=== PATIENT | male | born 1965 | race Caucasian/White ===

== ENCOUNTER → 2017-02-28 | Outpatient (CLI) | payer MEDICARE ==
--- NOTE | 2017-02-28 12:08 | REP ---
MRI OF THE RIGHT HIP: TECHNIQUE: Coronal T1, STIR through the pelvis, T2 fat sat, right hip all three planes, axial oblique proton density fat sat right hip. There is no bone marrow edema or occult fracture. There is no evidence of avascular necrosis. Two small bone islands are seen in the left femoral head. 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 Ill-defined high signal in the superior labrum and anterior labrum on the right is compatible with diffuse fraying. NO paralabral cyst is seen. There is no joint effusion. Other surrounding soft tissue structures demonstrate no abnormal signal. There is no evidence of tendinobursitis. The visualized intrapelvic structures appear unremarkable. 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 There appears to be diffuse fraying of the right superior labrum and anterior labrum. The labrum would be better evaluated with an MR arthrogram if clinically indicated. Signed by Hang Chaney MD 02/28/2017 07:59 P
== END ==
LOC: M PLARAD 10:05
PROVIDERS: ATTEND Orthopaedic Surgery
DX: M16.11 Unilateral primary osteoarthritis, right hip (principal)

== ENCOUNTER → 2018-05-08 | Outpatient (CLI) | payer MEDICARE, MEDICAID | LOC: M PLARAD 14:12 | DX: M51.36 Other intervertebral disc degeneration, lumbar region (principal) | CPT/HCPCS: 72148 ==

== ENCOUNTER → 2018-08-11 | Outpatient (REF) | payer MEDICARE, MEDICAID ==
[2018-08-11 14:57] LABS: PLATELET COUNT, AUTOMATED 265 10^3/uL (150-450)
[2018-08-11 15:09] LABS: INR 1.07; PARTIAL THROMBOPLASTIN TIME 29.5 SECONDS (25.4-37.6)
[2018-08-11 15:12] LABS: COLLAGEN EPINEPHRINE 155 SECONDS (74-162)
== END ==
LOC: M LABDRAW1 14:23
DX: D69.1 Qualitative platelet defects (principal); Z79.01 Long term (current) use of anticoagulants
CPT/HCPCS: 85049

== ENCOUNTER → 2018-10-22 | Outpatient (REF) ==
[~2018-10-22] MED LIST: ATOR40TA75 PO; COMB0.2S OU; GRIS1TAB PO; OMEP20CA3 PO; SIMV40TA2 PO; VITA50005 PO; XALA0.007 OU; ZYRT10CA5 PO
[2018-10-22 14:49] LABS: COLLAGEN EPINEPHRINE 170 SECONDS (74-162)
[2018-10-22 15:03] LABS: COLLAGEN ADP 142 SECONDS (56-103)
== END ==
LOC: M LAB REF 13:56
PROVIDERS: ATTEND Physical Medicine & Rehabilitation
DX: Z02.9 Encounter for administrative examinations, unspecified (principal)

== ENCOUNTER → 2018-11-03 | Outpatient (REF) ==
[2018-11-03 14:21] LABS: COLLAGEN EPINEPHRINE 169 SECONDS (74-162)
[2018-11-03 14:30] LABS: COLLAGEN ADP 151 SECONDS (56-103)
== END ==
LOC: M LAB REF 13:46
PROVIDERS: ATTEND Physical Medicine & Rehabilitation
DX: Z00.00 Encounter for general adult medical examination without abnormal findings (principal)

== ENCOUNTER 2021-01-10 16:14 | Emergency (ER) | payer MEDICARE, OTHER ==
[~2021-01-10] VITALS: Ht 167.6 cm; Wt 85.0 kg
[~2021-01-10 16:14] MED LIST changes: +ACET-683 PO; +ALL10TAB3 PO; +ATOR80TA59 PO; +CIPR500T19 PO; +CYCL-707 PO; +FENO48TA7 PO; +MULTCAP PO; +OMEP1CAP73 PO; -OMEP20CA3 PO; -SIMV40TA2 PO; +SIMV40TA20 PO; +STIM1.5S; +TRIA0.5O EX; +TUMS500C PO
[2021-01-10] MEDS ORDERED: LIDOCAINE 1% MDV 20ML VIAL SC ONE (18:45)
[2021-01-10] MEDS ORDERED: BACI500O21 TOP (19:10)
[2021-01-10 19:16] VITALS: BP 126/74
== END 2021-01-10 19:22 | disposition home or self-care (01) ==
LOC: M ED 16:14
DX: S61.012A Laceration without foreign body of left thumb without damage to nail, initial encounter (principal); W22.8XXA Striking against or struck by other objects, initial encounter; Y92.238 Other place in hospital as the place of occurrence of the external cause; I10 Essential (primary) hypertension; Z79.899 Other long term (current) drug therapy; Z88.0 Allergy status to penicillin

== ENCOUNTER → 2022-10-03 | Outpatient (CLI) | payer MEDICARE, MEDICAID ==
[~2022-10-03] MED LIST changes: +BACI500O21 TOP; +DESM0.1T2; +ERGO500029 PO; -FENO48TA7 PO; +FENO48TA8 PO; +MULT-90 PO
== END ==
LOC: M PAIN 13:00
PROVIDERS: ATTEND Nurse Practitioner Family
DX: M79.10 Myalgia, unspecified site (principal); G89.29 Other chronic pain; E11.9 Type 2 diabetes mellitus without complications; I10 Essential (primary) hypertension; G80.9 Cerebral palsy, unspecified; Z88.0 Allergy status to penicillin; Z88.8 Allergy status to other drugs, medicaments and biological substances; Z79.84 Long term (current) use of oral hypoglycemic drugs; Z79.899 Other long term (current) drug therapy

== ENCOUNTER 2024-01-21 07:21 | Day surgery (SDC) | payer MEDICARE, MEDICAID ==
[~2024-01-21] VITALS: Ht 167.6 cm; Wt 81.6 kg
[~2024-01-21 07:21] MED LIST changes: +AMLO1TAB24 PO; +DESM0.1T16; -DESM0.1T2; +LOSA50TA28 PO; +METF500T13 PO; +PHENYLEPHRINE 10% OPHTH SOL 5ML OD PRN
[2024-01-21] MEDS ORDERED: MIDAZOLAM INJ 2MG/2ML VIAL As Ordered ONE (07:45)
[2024-01-21] MEDS: PHENYLEPHRINE 2.5% OPHTH SOL 2ML OD SCH (08:08)
[2024-01-21] MEDS: ATROPINE SULFATE 1% OPHTH SOLN 2ML BTL OD SCH (08:08)
[2024-01-21] MEDS: LIDOCAINE 3.5 % 1ML OPHTH TOPICAL GEL OU ONE (08:08)
[2024-01-21] MEDS: TROPICAMIDE 1% OPHTH SOLN 15ML OD SCH (08:08)
[2024-01-21] MEDS: OFLOXACIN 0.3 % (OCUFLOX) OPTH SOL 5ML OD ONE (08:08)
[2024-01-21] MEDS: CEFUROXIME 1MG/0.1ML INTRACAMERAL INJ As Ordered ONE (08:12)
[2024-01-21] MEDS: LIDOCAINE 1% SDV 5ML VIAL As Ordered ONE (09:26)
[2024-01-21] MEDS: BSS IRRIG/VANCO(10MG)/TOBRA(5MG)/EPINEPH(1:1000-0.5CC)500ML BAG-ORONLY As Ordered ONE (09:26)
[2024-01-21] MEDS ORDERED: fentaNYL 100 MCG/2 ML INJECTION As Ordered ONE (09:31)
[2024-01-21] MEDS: DUOVISC (0.50ML VISCOAT/0.85ML PROVISC) OPHTH KIT As Ordered ONE (09:43)
[2024-01-21] MEDS: MOXIFLOXACIN 0.6MG/0.4ML INTRAOCULAR SYRINGE As Ordered ONE (09:43)
[2024-01-21 10:04] VITALS: BP 137/92; TEMP 97.5; O2SAT 94
== END 2024-01-21 10:26 | disposition home or self-care (01) ==
LOC: M SDC 07:21
PROVIDERS: ATTEND Ophthalmology
DX: H25.11 Age-related nuclear cataract, right eye (principal); H40.1111 Primary open-angle glaucoma, right eye, mild stage; I10 Essential (primary) hypertension; E78.5 Hyperlipidemia, unspecified; E11.9 Type 2 diabetes mellitus without complications; K21.9 Gastro-esophageal reflux disease without esophagitis; G80.9 Cerebral palsy, unspecified; Z79.84 Long term (current) use of oral hypoglycemic drugs; Z79.899 Other long term (current) drug therapy; Z88.0 Allergy status to penicillin
CPT/HCPCS: 66991; C1783; J2250; J3010; V2632

== ENCOUNTER 2024-04-01 07:58 | Day surgery (SDC) | payer MEDICARE, MEDICAID ==
[~2024-04-01] VITALS: Ht 167.6 cm; Wt 78.9 kg
[~2024-04-01 07:58] MED LIST changes: -PHENYLEPHRINE 10% OPHTH SOL 5ML OD PRN; +VASC1CAP2 PO
[2024-04-01] MEDS: NS 1,000 ML IV ONE (08:35)
[2024-04-01] MEDS ORDERED: LIDOCAINE 2% 100MG/5ML SDV (FOR ANES.) As Ordered ONE (09:03)
[2024-04-01] MEDS ORDERED: propofoL 200 MG/20 ML VIAL As Ordered ONE (09:03)
[2024-04-01 09:24] VITALS: BP 121/71; TEMP 98.2; O2SAT 97
== END 2024-04-01 09:46 | disposition home or self-care (01) ==
LOC: M OPP 07:58
PROVIDERS: ATTEND Internal Medicine Gastroenterology
DX: Z86.010 Personal history of colon polyps (principal); Z80.0 Family history of malignant neoplasm of digestive organs; K64.8 Other hemorrhoids; K57.30 Diverticulosis of large intestine without perforation or abscess without bleeding; E11.9 Type 2 diabetes mellitus without complications; G80.9 Cerebral palsy, unspecified; G47.30 Sleep apnea, unspecified; Z79.02 Long term (current) use of antithrombotics/antiplatelets; Z79.1 Long term (current) use of non-steroidal anti-inflammatories (NSAID); Z79.84 Long term (current) use of oral hypoglycemic drugs; Z79.899 Other long term (current) drug therapy; Z88.0 Allergy status to penicillin; Z88.8 Allergy status to other drugs, medicaments and biological substances

== ENCOUNTER → 2024-07-05 | Outpatient (CLI) | payer MEDICARE, MEDICAID ==
[~2024-07-05] MED LIST changes: +ISOVUE-300 61% 100ML VIAL As Ordered ONE; +LIDOCAINE 1% MDV 20ML VIAL As Ordered ONE; +methylPREDNISolone SUSP 40MG/ML 1ML VIAL (DEPO MEDROL) As Ordered ONE
== END ==
LOC: M RAD 12:46
PROVIDERS: ATTEND Physician Assistant Surgical
DX: M70.61 Trochanteric bursitis, right hip (principal); M16.11 Unilateral primary osteoarthritis, right hip
CPT/HCPCS: 20610; 77002; J1010; Q9967

== ENCOUNTER 2024-09-08 10:56 | Day surgery (SDC) | payer MEDICARE, MEDICAID ==
[~2024-09-08] VITALS: Ht 167.6 cm; Wt 80.3 kg
[~2024-09-08 10:56] MED LIST changes: +ICOS1CAP PO; -ISOVUE-300 61% 100ML VIAL As Ordered ONE; -LIDOCAINE 1% MDV 20ML VIAL As Ordered ONE; +MELO7.5T35 PO; +PHENYLEPHRINE 10% OPHTH SOL 5ML OS PRN; -methylPREDNISolone SUSP 40MG/ML 1ML VIAL (DEPO MEDROL) As Ordered ONE
[2024-09-08] MEDS ORDERED: MIDAZOLAM INJ 2MG/2ML VIAL As Ordered ONE (12:22)
[2024-09-08] MEDS ORDERED: fentaNYL 100 MCG/2 ML INJECTION As Ordered ONE (12:22)
[2024-09-08] MEDS: OFLOXACIN 0.3 % (OCUFLOX) OPTH SOL 5ML OS ONE (12:56)
[2024-09-08] MEDS: LIDOCAINE 3.5 % 1ML OPHTH TOPICAL GEL OU ONE (12:56)
[2024-09-08] MEDS: ATROPINE SULFATE 1% OPHTH SOLN 2ML BTL OS SCH (12:56)
[2024-09-08] MEDS: TROPICAMIDE 1% OPHTH SOLN 15ML OS SCH (12:57)
[2024-09-08] MEDS: PHENYLEPHRINE 2.5% OPHTH SOL 2ML OS SCH (12:57)
[2024-09-08] MEDS: CEFUROXIME 1MG/0.1ML INTRACAMERAL INJ As Ordered ONE (14:23)
[2024-09-08] MEDS: LIDOCAINE 1% SDV 5ML VIAL As Ordered ONE (14:23)
[2024-09-08] MEDS: DUOVISC (0.50ML VISCOAT/0.85ML PROVISC) OPHTH KIT As Ordered ONE (14:23)
[2024-09-08] MEDS: BSS IRRIG/VANCO(10MG)/TOBRA(5MG)/EPINEPH(1:1000-0.5CC)500ML BAG-ORONLY As Ordered ONE (14:23)
[2024-09-08 14:31] VITALS: BP 131/86; TEMP 96.6; O2SAT 94
== END 2024-09-08 15:00 | disposition home or self-care (01) ==
LOC: M SDC 10:56
PROVIDERS: ATTEND Ophthalmology
DX: H40.1121 Primary open-angle glaucoma, left eye, mild stage (principal); H25.12 Age-related nuclear cataract, left eye; G80.9 Cerebral palsy, unspecified; I10 Essential (primary) hypertension; R73.03 Prediabetes; E78.00 Pure hypercholesterolemia, unspecified; H90.5 Unspecified sensorineural hearing loss; Z79.899 Other long term (current) drug therapy; Z79.84 Long term (current) use of oral hypoglycemic drugs; Z79.1 Long term (current) use of non-steroidal anti-inflammatories (NSAID); Z88.0 Allergy status to penicillin; K21.9 Gastro-esophageal reflux disease without esophagitis; Z98.41 Cataract extraction status, right eye
CPT/HCPCS: 66991; C1783; J0697; J2250; J3010; V2632